=== PATIENT | male | born 1975 | race Two or more races ===

== ENCOUNTER 2022-04-16 21:01 | Emergency (ER) | payer OTHER ==
[~2022-04-16] VITALS: Ht 170.2 cm; Wt 75.7 kg
== END 2022-04-16 21:30 | disposition left against medical advice (07) ==
LOC: ER 21:10
DX: R25.2 Cramp and spasm (principal)

== ENCOUNTER 2022-04-16 21:42 | Inpatient (IN) | payer OTHER ==
[~2022-04-16] VITALS: Ht 170.2 cm; Wt 81.6 kg
[2022-04-16] MEDS ORDERED: SODIUM CHLORIDE 0.9% 1000ML 1,000 ML ONE ×2 (21:59→23:43)
[2022-04-16] MEDS: SODIUM CHLORIDE 0.9% 1000ML 1,000 ML IV SCH (22:00)
[2022-04-16] MEDS ORDERED: SODIUM CHLORIDE 0.9% 1000ML 1,000 ML IV SCH ×2 (22:30)
[2022-04-16] MEDS ORDERED: SODIUM CHLORIDE 0.9% 1000ML 2,000 ML ONE (22:35)
[2022-04-16] MEDS ORDERED: ONDANSETRON HCL INJ 2MG/ML 2ML 2 MG/ML VIAL IV PRN (22:45)
[2022-04-17] VITALS (8 sets, daily range): BP systolic 114–129; BP diastolic 74–87
[2022-04-17] MEDS: SODIUM CHLORIDE 0.9% 1000ML 1,000 ML IV SCH ×4 (00:45→22:18)
[2022-04-17 07:09] LABS: BASOPHILS # (AUTO) 0.1 (0.0-0.1); BASOPHILS % 0.7 % (0.0-1.0); EOSINOPHILS # (AUTO) 0.1 (0.0-0.4); EOSINOPHILS % 1.2 % (0.0-6.0); HEMATOCRIT 45.4 % (38.2-49.6); HEMOGLOBIN 15.5 g/dL (14.0-18.0); LYMPHOCYTES # (AUTO) 2.1 (1.0-3.2); LYMPHOCYTES % 19.2 % (18.0-39.1); MEAN CORPUSCULAR HEMOGLOBIN 29.6 pg (28-32); MEAN CORPUSCULAR HGB CONC 34.1 g/dL (31-35); MEAN CORPUSCULAR VOLUME 86.8 fL (81-99); MONOCYTES # (AUTO) 1.2 (0.2-0.8); MONOCYTES % 10.8 % (4.4-11.3); NEUTROPHILS # (AUTO) 7.2 (2.1-6.9); NEUTROPHILS % 67.7 % (38.7-80.0); PLATELET COUNT 205 x10e3/uL (140-360); RED BLOOD COUNT 5.23 x10e6/uL (4.3-5.7); RED CELL DISTRIBUTION WIDTH 13.2 % (11.7-14.4)
[2022-04-17 07:40] LABS: ALBUMIN 3.7 g/dL (3.5-5.0); ANION GAP 9.5 mmol/L (8-16); BILIRUBIN,DIRECT 0.4 mg/dL (0.0-0.5); CREATININE, SERUM 1.46 mg/dL (0.72-1.25); PHOSPHORUS 2.6 MG/DL (2.3-4.7); POTASSIUM 3.5 mmol/L (3.5-5.1)
[2022-04-18] VITALS: BP 116/77
[2022-04-18 04:00] VITALS: BP 127/70
[2022-04-18 07:35] VITALS: BP 133/77
[2022-04-18 08:03] VITALS: BP 133/73
[2022-04-18 09:06] LABS: ANION GAP 10.3 mmol/L (8-16); CREATININE, SERUM 1.01 mg/dL (0.72-1.25); POTASSIUM 3.3 mmol/L (3.5-5.1)
[2022-04-18] MEDS ORDERED: POTASSIUM CHLORIDE 20 MEQ TAB CR PO ONE (10:00)
== END 2022-04-18 09:52 | disposition home or self-care (01) | DRG 923 ==
LOC: FSED 21:46 → ERHOLD 22:49 → MED/SURG 04-17 00:33
PROVIDERS: ADMIT Internal Medicine; ATTEND Internal Medicine
DX: T67.02XA Exertional heatstroke, initial encounter (principal); M62.82 Rhabdomyolysis; N17.9 Acute kidney failure, unspecified; X32.XXXA Exposure to sunlight, initial encounter; E86.0 Dehydration; Z20.822 Contact with and (suspected) exposure to COVID-19
CPT/HCPCS: 36415; 80048; 80053; 80076; 81003; 82550; 82553; 82948; 83735; 84100; 84484; 85025; 99284; J7030